=== PATIENT | female | born 1950 | race Caucasian/White ===

== ENCOUNTER 2017-04-23 18:22 | Inpatient (IN) | payer MEDICARE, OTHER ==
[~2017-04-23] VITALS: Ht 177.8 cm; Wt 56.7 kg
[2017-04-23 19:11] VITALS: BP 131/82
[2017-04-23] MEDS ORDERED: Morphine Sulfate 4mg/ml Inj IVP ONE ×2 (19:30→20:45)
[2017-04-23 20:00] VITALS: BP 120/67
[2017-04-23 20:06] LABS: BASOPHILS % (AUTO) 1.3 % (0.0-2.0); EOSINOPHILS % (AUTO) 2.3 % (0.0-3.0); LYMPHOCYTES % (AUTO) 21.7 % (20.0-45.0); MEAN CORPUSCULAR HEMOGLOBIN 34.9 PG (27.0-31.0); MEAN CORPUSCULAR HGB CONC 36.4 G/DL (32.0-36.0); MEAN CORPUSCULAR VOLUME 96 FL (80-99); MEAN PLATELET VOLUME 6.5 FL (6.5-10.1); MONOCYTES % (AUTO) 6.9 % (1.0-10.0); NEUTROPHILS % (AUTO) 67.8 % (45.0-75.0); PLATELET COUNT 152 K/UL (150-450); RED BLOOD COUNT 4.03 M/UL (4.20-5.40); RED CELL DISTRIBUTION WIDTH 12.3 % (11.6-14.8); WHITE BLOOD COUNT 7.9 K/UL (4.8-10.8)
[2017-04-23 20:20] LABS: ALBUMIN/GLOBULIN RATIO 1.4 (1.0-2.7); CALCIUM 9.8 mg/dL (8.6-10.2); GLOMERULAR FILTRATION RATE 55.5 mL/min (>60); POTASSIUM 4.2 mEQ/L (3.4-4.9); TOTAL PROTEIN 7.2 g/dL (6.6-8.7)
[2017-04-23 21:00] VITALS: BP 126/72
[2017-04-23 22:00] VITALS: BP 117/90
[2017-04-23] MEDS ORDERED: LORazepam Inj 2mg/ml 1ml IV PRN (22:30)
[2017-04-23] MEDS ORDERED: Mylanta II UD 30ml ORAL PRN (22:30)
[2017-04-23] MEDS ORDERED: Morphine Sulfate 2mg/ml Inj IVP PRN (22:30)
[2017-04-23] MEDS ORDERED: Zolpidem 5mg tab ORAL PRN (22:30)
[2017-04-23] MEDS ORDERED: Miralax 17gm pkt ORAL PRN (22:30)
[2017-04-23] MEDS ORDERED: NEURONTIN300 MG ORAL (22:59)
[2017-04-23] MEDS ORDERED: TRAZODONE HCL150 MG ORAL (22:59)
[2017-04-23] MEDS ORDERED: NORCO 5-325 TA1 EAC1 ORAL (22:59)
[2017-04-23 23:00] VITALS: BP 124/91
--- NOTE | 2017-04-23 23:46 | Emergency Room Report ---
History of Present Illness General Chief Complaint: Multiple Trauma/Fall Source: Patient Present Illness HPI 66-year-old female presents ED for evaluation. Patient is here complaining of neck pain, back pain and left leg pain. States that she had a mechanical trip and fall on Wednesday where she missed the steps and fell on her left side. Denies LOC. Patient was seen at [facility] in [facility]. Had x-rays was told a reading was normal was discharged home. Patient states since then she has had intense pain which is not improving with pain medication. Unable to ambulate so she came here. Patient has pain in her neck, back, left hip and left leg. Pain is a 10 out of 10, sharp, nonradiating. No other aggravating or relieving factors. Patient states that she had back surgery here in [address] Adan. Patient states this is related to a Worker's Comp. related injury years ago. Denies any other associated symptom Allergies: Coded Allergies: No Known Allergies (Verified Allergy, Mild, 09/14/06) Patient History Past Surgical History: other - back surgery Pertinent Family History: none Social History: Denies: alcohol use, drug use, smoking Now: No Immunizations: UTD Reviewed Nursing Documentation: PMH: Agreed, PSxH: Agreed Nursing Documentation-PMH Past Medical History: No History, Except For Review of Systems All Other Systems: negative except mentioned in HPI Physical Exam Vital Signs Date Time Temp Pulse Resp B/P Pulse Ox O2 Delivery O2 Flow Rate FiO2 04/23/17 18:50 99.1 83 21 131/82 97 Room Air Sp02 EP Interpretation: reviewed, normal General Appearance: alert, GCS 15, non-toxic, mild distress Head: normocephalic Eyes: bilateral eye PERRL, bilateral eye normal inspection ENT: hearing grossly normal, normal pharynx, no angioedema, normal voice Neck: full range of motion, supple/symm/no masses, tender lateral, tender midline Respiratory: chest non-tender, lungs clear, normal breath sounds, speaking full sentences Cardiovascular #1: regular rate, rhythm, no edema Gastrointestinal: normal bowel sounds, non tender, soft, non-distended, no guarding, no rebound Rectal: black stool Genitourinary: no CVA tenderness, vertebral tenderness Musculoskeletal: tender - L hip, L femur Neurologic: alert, oriented x3, responsive, motor strength/tone normal, sensory intact, speech normal Psychiatric: normal inspection Skin: normal inspection Lymphatic: normal inspection Medical Decision Making Diagnostic Impression: Primary Impression: Intractable back pain Additional Impressions: Unable to ambulate Opioid dependence Qualified Codes: F11.29 - Opioid dependence with unspecified opioid-induced disorder ER Course Hospital Course 66-year-old female presents ED complaining of neck, back and leg pain status post fall on Wednesday Differential diagnoses include: fracture, dislocation, contusion Clinical course Patient placed on stretcher. site monitor. After initial history and physical I ordered labs, IV fluids, pain medications, and imaging studies Labs - no leukocytosis, Hb/Hct stable. electrolytes ok. CT C-spine, CT L-spine and CT pelvis were unremarkable Patient x-rays of left wrist, left ankle and left femur which were all unremarkable, hardware in L hip in place Patient given pain medications but still continues to have pain and unable to walk Patient is a [place] patient; however patient does not want to be admitted to [place] because this is related to her Workmen's Comp. injury Discussed case with Dr. Adan; he will follow the patient once admitted Pain management doctor is Dr Kiet Macias; he is aware that patient has extensive narcotic dependence and despite receiving 120 tablets of [place] 2 weeks ago patient has finished her medication. He will see patient once admitted. Case discussed with Dr. Jeffries and he agreed to accept the patient to his service for further care and support I feel this is a highly complex case requiring extensive working including EKG/ Rhythm strip, Xray/CT/US, Blood/urine lab work, repeat exams while in ED, and administration of strong opiates/narcotics for pain control, admission to hospital or close patient follow up. Diagnosis -intractable back pain , unable to ambulate, opioid dependence Patient admitted to floor in serious condition Labs Test 04/23/17 19:35 White Blood Count 7.9 K/UL (4.8-10.8) Red Blood Count 4.03 M/UL (4.20-5.40) Hemoglobin 14.0 G/DL (12.0-16.0) Hematocrit 38.6 % (37.0-47.0) Mean Corpuscular Volume 96 FL (80-99) Mean Corpuscular Hemoglobin 34.9 PG (27.0-31.0) Mean Corpuscular Hemoglobin Concent 36.4 G/DL (32.0-36.0) Red Cell Distribution Width 12.3 % (11.6-14.8) Platelet Count 152 K/UL (150-450) Mean Platelet Volume 6.5 FL (6.5-10.1) Neutrophils (%) (Auto) 67.8 % (45.0-75.0) Lymphocytes (%) (Auto) 21.7 % (20.0-45.0) Monocytes (%) (Auto) 6.9 % (1.0-10.0) Eosinophils (%) (Auto) 2.3 % (0.0-3.0) Basophils (%) (Auto) 1.3 % (0.0-2.0) Sodium Level 140 mEQ/L (135-145) Potassium Level 4.2 mEQ/L (3.4-4.9) Chloride Level 99 mEQ/L (98-107) Carbon Dioxide Level 27 mEQ/L (20-30) Anion Gap 14 (5-15) Blood Urea Nitrogen 19 mg/dL (7-23) Creatinine 1.0 mg/dL (0.5-0.9) Estimat Glomerular Filtration Rate 55.5 mL/min (>60) Glucose Level 95 mg/dL (74-106) Calcium Level 9.8 mg/dL (8.6-10.2) Total Bilirubin 0.4 mg/dL (0.0-1.2) Aspartate Amino Transf (AST/SGOT) 17 U/L (5-40) Alanine Aminotransferase (ALT/SGPT) 7 U/L (3-33) Alkaline Phosphatase 55 U/L (35-104) Total Protein 7.2 g/dL (6.6-8.7) Albumin 4.2 g/dL (3.5-5.2) Globulin 3.0 g/dL Albumin/Globulin Ratio 1.4 (1.0-2.7) Other X-Ray Diagnostic Results Other X-Ray Diagnostic Results : X-Ray Ordered: L wrist, L ankle, L femur EP Interpretation: Yes Findings: no fractures, no dislocation, no soft tissue swelling Number of Views: 3 Other Impression Left wrist-No fracture, no dislocation, no soft tissue swelling Left femur-No fracture, no dislocation, no soft tissue swelling, hardware in place Left ankle-No fracture, no dislocation, no soft tissue swelling CT/MRI/US Diagnostic Results CT/MRI/US Diagnostic Results : Imaging Test Ordered: cT C-spine, CT L-spine, CT Pelvis Impression CT C-spine-no acute process CT L-spine-no acute process CT pelvis - no acute process Last Vital Signs Date Time Temp Pulse Resp B/P Pulse Ox O2 Delivery O2 Flow Rate FiO2 04/23/17 23:00 62 18 124/91 98 Room Air 04/23/17 20:53 99.1 Status: improved Disposition: ADMITTED INPATIENT Condition: Serious Referrals: [facility] (PCP) SALUD GANN M.D. Apr 23, 2017 23:46
[2017-04-24] VITALS (8 sets, daily range): BP systolic 116–135; BP diastolic 69–91
[2017-04-24] MEDS: Morphine Sulfate 4mg/ml Inj IVP PRN ×5 (02:17→21:45)
--- NOTE | 2017-04-24 09:08 | Diagnostic Imaging Report ---
Indication: Neck pain. Technique: Continuous helical imaging of the cervical spine was obtained transaxially from the skull base to the upper thoracic spine. 2-D coronal and sagittal reformatted images were obtained. Total Dose length Product (DLP): [address] Dose Index Volume (CTDIvol): 10.25 mGy Comparison: None Findings: Bones are osteopenic. There is no fracture or malalignment identified. Some narrowing of the intervertebral discs at C5-6 and C6-7 are noted with accompanying endplate and uncovertebral spur formation and foraminal stenosis. Mastoids are clear bilaterally. Soft tissues are unremarkable in appearance. The lung apices demonstrate nonspecific pleural thickening. Impression: No acute injury [facility] has communicated the preliminary results to the Emergency Department. Their findings are largely concordant with this report. The CT scanner at [facility] is accredited by the [employer] and the scans are performed using dose optimization techniques as appropriate to a performed exam including Automatic Exposure control.
[2017-04-24 10:00] LABS: BASOPHILS % (AUTO) 1.4 % (0.0-2.0); EOSINOPHILS % (AUTO) 3.2 % (0.0-3.0); LYMPHOCYTES % (AUTO) 28.1 % (20.0-45.0); MEAN CORPUSCULAR HEMOGLOBIN 32.3 PG (27.0-31.0); MEAN CORPUSCULAR HGB CONC 34.1 G/DL (32.0-36.0); MEAN CORPUSCULAR VOLUME 95 FL (80-99); MEAN PLATELET VOLUME 6.3 FL (6.5-10.1); MONOCYTES % (AUTO) 7.8 % (1.0-10.0); NEUTROPHILS % (AUTO) 59.5 % (45.0-75.0); PLATELET COUNT 162 K/UL (150-450); RED BLOOD COUNT 3.87 M/UL (4.20-5.40); RED CELL DISTRIBUTION WIDTH 11.8 % (11.6-14.8); WHITE BLOOD COUNT 6.1 K/UL (4.8-10.8)
[2017-04-24 10:29] LABS: ALANINE AMINOTRANSFERASE 6 U/L (3-33); ALBUMIN/GLOBULIN RATIO 1.3 (1.0-2.7); ANION GAP 14 (5-15); ASPARTATE AMINO TRANSFERASE 15 U/L (5-40); CALCIUM 9.2 mg/dL (8.6-10.2); CARBON DIOXIDE 27 mEQ/L (20-30); CHLORIDE 98 mEQ/L (98-107); CREATININE 0.9 mg/dL (0.5-0.9); GLOMERULAR FILTRATION RATE > 60 mL/min (>60); HEMOLYSIS 10; POTASSIUM 3.9 mEQ/L (3.4-4.9); SODIUM 139 mEQ/L (135-145); TOTAL PROTEIN 6.4 g/dL (6.6-8.7)
[2017-04-24] MEDS: Heparin 5000 units/ml inj SUBQ SCH ×2 (11:00→21:00)
--- NOTE | 2017-04-24 11:06 | Diagnostic Imaging Report ---
Indication: Pain Findings: 3 views of the left wrist were obtained. No acute fractures, malalignment, erosions or periostitis are identified. Bone mineralization is within normal limits. Soft tissues are unremarkable. Impression: Negative examination of the left wrist.
--- NOTE | 2017-04-24 11:07 | Diagnostic Imaging Report ---
Indication: Pain Findings: 2 views of the left femur were obtained. Left total hip replacement demonstrated. No abnormal interface lucencies or fracture identified. The bones are osteopenic. Hardware alignment/position appear unremarkable. Impression: No acute abnormalities
--- NOTE | 2017-04-24 15:03 | History and Physical ---
History of Present Illness General Date patient seen: Apr 24, 2017 Time patient seen: 12:30 Reason for Hospitalization: Multiple Trauma/Fall Present Illness HPI 66-year-old female presented to ED for evaluation. Patient was complaining of neck pain, back pain and left leg pain after a mechanical trip and fall on Wednesday where she missed the steps and fell on her left side. Denied LOC, dizziness, ehad injury . Patient was seen at [facility] in [facility]. She had x-rays at [facility] , was told readings were normal and subsequently she was discharged home. Patient stated that since that time she has had intense pain which was not improved with pain medication. Unable to ambulate and came to [facility] ED for evaluation ' Patient had pain in her neck, back, left hip and left leg. Pain was 10 out of 10, sharp, nonradiating. Patient reported to ve back surgery here in [address] Adan. Patient stated was related to a Worker's Comp. related injury years ago. Workup in ED was unremarkable Labs - no leukocytosis, Hb/Hct stable. electrolytes stable . CT C-spine, CT L-spine and CT pelvis were unremarkable Patient x-rays of left wrist, left ankle and left femur which were all unremarkable, hardware in L hip in place Patient was given pain medications but she still continued to have pain and was unable to walk Patient was admitted for further management This morning patient was unable to work with physical therapist per physical therapist patient may have fracture patient herself reported that she can not move her left leg Allergies: Coded Allergies: No Known Allergies (Verified Allergy, Mild, 09/14/06) Medication History Scheduled Gabapentin (Neurontin), 300 MG ORAL THREE TIMES A DAY, (Reported) Trazodone* (Trazodone*), 150 MG ORAL BEDTIME, (Reported) Scheduled PRN Hydrocodone Bit/Acetaminophen 5-325* ([place] 5-325 Tablet*), 1 TAB ORAL Q4H PRN for For Pain, (Reported) Patient History Healthcare decision maker Resuscitation status Full Code Advanced Directive on File Review of Systems Constitutional: Reports: weakness Eye: Reports: no symptoms ENT: Reports: nasal discharge Cardiovascular: Reports: no symptoms Gastrointestinal: Reports: no symptoms Genitourinary: Reports: no symptoms Musculoskeletal: Reports: see HPI Skin: Reports: no symptoms Psychiatric: Reports: no symptoms Neurological: Reports: no symptoms Endocrine: Reports: no symptoms Hematologic/Lymphatic: Reports: no symptoms Physical Exam General Appearance: alert, mild distress, thin - female in mild distress Lines, tubes and drains: peripheral HEENT: normocephalic, atraumatic, anicteric, mucous membranes moist, PERRL Neck: non-tender, supple Respiratory/Chest: lungs clear, no respiratory distress, no accessory muscle use Abdomen: normal bowel sounds, non tender, soft Extremities: no calf tenderness, normal capillary refill, other - LLE with edema and external rotation Neurologic: abnormal gait, alert, oriented x 3, responsive, normal mood/affect Musculoskeletal: normal muscle bulk Last 24 Hour Vital Signs Date Time Temp Pulse Resp B/P Pulse Ox O2 Delivery O2 Flow Rate FiO2 04/24/17 12:17 98.3 82 20 128/81 94 Room Air 04/24/17 08:05 98.1 72 21 122/77 92 Room Air 04/24/17 06:49 98.2 04/24/17 04:00 98.2 71 18 116/70 90 Room Air 04/24/17 01:51 97.7 70 18 124/74 97 Room Air 04/24/17 01:00 62 18 124/91 98 Room Air 04/24/17 00:00 98.7 65 16 128/89 95 Room Air 04/23/17 23:53 99.1 62 18 124/91 98 Room Air 04/23/17 23:00 62 18 124/91 98 Room Air 04/23/17 22:00 66 11 117/90 96 Room Air 04/23/17 21:00 73 16 126/72 95 Room Air 04/23/17 20:53 99.1 04/23/17 20:04 99.1 04/23/17 20:00 80 14 120/67 97 Room Air 04/23/17 19:11 99.1 83 21 131/82 97 Room Air 04/23/17 18:50 99.1 83 21 131/82 97 Room Air Intake and Output 04/23/17 04/24/17 19:00 07:00 Intake Total 125 ml Output Total 350 ml Balance -225 ml Intake Oral 125 ml Output Urine Total 350 ml # Voids 1 Laboratory Tests Test 04/23/17 19:35 04/24/17 08:50 White Blood Count 7.9 K/UL (4.8-10.8) 6.1 K/UL (4.8-10.8) Red Blood Count 4.03 M/UL (4.20-5.40) L 3.87 M/UL (4.20-5.40) L Hemoglobin 14.0 G/DL (12.0-16.0) 12.5 G/DL (12.0-16.0) Hematocrit 38.6 % (37.0-47.0) 36.6 % (37.0-47.0) L Mean Corpuscular Volume 96 FL (80-99) 95 FL (80-99) Mean Corpuscular Hemoglobin 34.9 PG (27.0-31.0) H 32.3 PG (27.0-31.0) H Mean Corpuscular Hemoglobin Concent 36.4 G/DL (32.0-36.0) H 34.1 G/DL (32.0-36.0) Red Cell Distribution Width 12.3 % (11.6-14.8) 11.8 % (11.6-14.8) Platelet Count 152 K/UL (150-450) 162 K/UL (150-450) Mean Platelet Volume 6.5 FL (6.5-10.1) 6.3 FL (6.5-10.1) L Neutrophils (%) (Auto) 67.8 % (45.0-75.0) 59.5 % (45.0-75.0) Lymphocytes (%) (Auto) 21.7 % (20.0-45.0) 28.1 % (20.0-45.0) Monocytes (%) (Auto) 6.9 % (1.0-10.0) 7.8 % (1.0-10.0) Eosinophils (%) (Auto) 2.3 % (0.0-3.0) 3.2 % (0.0-3.0) H Basophils (%) (Auto) 1.3 % (0.0-2.0) 1.4 % (0.0-2.0) Sodium Level 140 mEQ/L (135-145) 139 mEQ/L (135-145) Potassium Level 4.2 mEQ/L (3.4-4.9) 3.9 mEQ/L (3.4-4.9) Chloride Level 99 mEQ/L (98-107) 98 mEQ/L (98-107) Carbon Dioxide Level 27 mEQ/L (20-30) 27 mEQ/L (20-30) Anion Gap 14 (5-15) 14 (5-15) Blood Urea Nitrogen 19 mg/dL (7-23) 17 mg/dL (7-23) Creatinine 1.0 mg/dL (0.5-0.9) H 0.9 mg/dL (0.5-0.9) Estimat Glomerular Filtration Rate 55.5 mL/min (>60) > 60 mL/min (>60) Glucose Level 95 mg/dL (74-106) 90 mg/dL (74-106) Calcium Level 9.8 mg/dL (8.6-10.2) 9.2 mg/dL (8.6-10.2) Total Bilirubin 0.4 mg/dL (0.0-1.2) 0.4 mg/dL (0.0-1.2) Aspartate Amino Transf (AST/SGOT) 17 U/L (5-40) 15 U/L (5-40) Alanine Aminotransferase (ALT/SGPT) 7 U/L (3-33) 6 U/L (3-33) Alkaline Phosphatase 55 U/L (35-104) 49 U/L (35-104) Total Protein 7.2 g/dL (6.6-8.7) 6.4 g/dL (6.6-8.7) L Albumin 4.2 g/dL (3.5-5.2) 3.7 g/dL (3.5-5.2) Globulin 3.0 g/dL 2.7 g/dL Albumin/Globulin Ratio 1.4 (1.0-2.7) 1.3 (1.0-2.7) Thyroid Stimulating Hormone (TSH) 3.290 uIU/mL (0.300-4.500) Height (Feet): 5 Height (Inches): 10.00 Weight (Pounds): 125 Medications Current Medications Medications (Trade) Dose Ordered Sig/Nasreen Route PRN Reason Start Time Stop Time Status Last Admin Dose Admin Acetaminophen (Tylenol) 650 mg Q4H PRN ORAL fever 04/23/17 22:30 05/23/17 22:29 Al Hydroxide/Mg Hydroxide (Mylanta II) 30 ml Q6H PRN ORAL dyspepsia 04/23/17 22:30 05/23/17 22:29 Dextrose (Dextrose 50%) STAT PRN IV Hypoglycemia 04/23/17 22:30 05/23/17 22:29 Heparin Sodium (Porcine) (Heparin 5000 units/ml) 5,000 units EVERY 12 HOURS SUBQ 04/24/17 09:00 05/24/17 08:59 04/24/17 11:00 Lorazepam (Ativan 2mg/ml 1ml) 0.5 mg Q4H PRN IV For Anxiety 04/23/17 22:30 04/30/17 22:29 Morphine Sulfate (Morphine Sulfate) 2 mg Q4H PRN IVP For Pain 4-6 04/23/17 22:30 04/30/17 22:29 Morphine Sulfate (Morphine Sulfate) 4 mg Q4H PRN IVP For Pain 7-10 04/23/17 22:30 04/30/17 22:29 04/24/17 11:03 Ondansetron HCl (Zofran) 4 mg Q6H PRN IVP Nausea & Vomiting 04/23/17 22:30 05/23/17 22:29 Polyethylene Glycol (Miralax) 17 gm HSPRN PRN ORAL Constipation 04/23/17 22:30 05/23/17 22:29 Zolpidem Tartrate (Ambien) 5 mg HSPRN PRN ORAL Insomnia 04/23/17 22:30 05/23/17 22:29 Assessment/Plan Assessment/Plan ASSESSMENT s/p mechanical fall intractable pain LLE r/o fracture hx of L hip surgery hx of lumbar surgery intractable back pain inability to ambulate chronic pain syndrome opioid dependency PLAN OF CARE MS floor pain management pain specialist consult CT L hip and X ray R knee today stat surgery eval PT/OT DVT prophylaxis case discussed and evaluated by supervising physician Mindi Keen NP ([place]) Apr 24, 2017 15:03
--- NOTE | 2017-04-24 17:11 | Neurology Progress Note ---
Objective Physical Exam Last Vital Signs Date Time Temp Pulse Resp B/P Pulse Ox O2 Delivery O2 Flow Rate FiO2 04/24/17 15:43 100.0 66 20 135/69 95 Room Air Laboratory Tests Test 04/23/17 19:35 04/24/17 08:50 White Blood Count 7.9 K/UL (4.8-10.8) 6.1 K/UL (4.8-10.8) Red Blood Count 4.03 M/UL (4.20-5.40) L 3.87 M/UL (4.20-5.40) L Hemoglobin 14.0 G/DL (12.0-16.0) 12.5 G/DL (12.0-16.0) Hematocrit 38.6 % (37.0-47.0) 36.6 % (37.0-47.0) L Mean Corpuscular Volume 96 FL (80-99) 95 FL (80-99) Mean Corpuscular Hemoglobin 34.9 PG (27.0-31.0) H 32.3 PG (27.0-31.0) H Mean Corpuscular Hemoglobin Concent 36.4 G/DL (32.0-36.0) H 34.1 G/DL (32.0-36.0) Red Cell Distribution Width 12.3 % (11.6-14.8) 11.8 % (11.6-14.8) Platelet Count 152 K/UL (150-450) 162 K/UL (150-450) Mean Platelet Volume 6.5 FL (6.5-10.1) 6.3 FL (6.5-10.1) L Neutrophils (%) (Auto) 67.8 % (45.0-75.0) 59.5 % (45.0-75.0) Lymphocytes (%) (Auto) 21.7 % (20.0-45.0) 28.1 % (20.0-45.0) Monocytes (%) (Auto) 6.9 % (1.0-10.0) 7.8 % (1.0-10.0) Eosinophils (%) (Auto) 2.3 % (0.0-3.0) 3.2 % (0.0-3.0) H Basophils (%) (Auto) 1.3 % (0.0-2.0) 1.4 % (0.0-2.0) Sodium Level 140 mEQ/L (135-145) 139 mEQ/L (135-145) Potassium Level 4.2 mEQ/L (3.4-4.9) 3.9 mEQ/L (3.4-4.9) Chloride Level 99 mEQ/L (98-107) 98 mEQ/L (98-107) Carbon Dioxide Level 27 mEQ/L (20-30) 27 mEQ/L (20-30) Anion Gap 14 (5-15) 14 (5-15) Blood Urea Nitrogen 19 mg/dL (7-23) 17 mg/dL (7-23) Creatinine 1.0 mg/dL (0.5-0.9) H 0.9 mg/dL (0.5-0.9) Estimat Glomerular Filtration Rate 55.5 mL/min (>60) > 60 mL/min (>60) Glucose Level 95 mg/dL (74-106) 90 mg/dL (74-106) Calcium Level 9.8 mg/dL (8.6-10.2) 9.2 mg/dL (8.6-10.2) Total Bilirubin 0.4 mg/dL (0.0-1.2) 0.4 mg/dL (0.0-1.2) Aspartate Amino Transf (AST/SGOT) 17 U/L (5-40) 15 U/L (5-40) Alanine Aminotransferase (ALT/SGPT) 7 U/L (3-33) 6 U/L (3-33) Alkaline Phosphatase 55 U/L (35-104) 49 U/L (35-104) Total Protein 7.2 g/dL (6.6-8.7) 6.4 g/dL (6.6-8.7) L Albumin 4.2 g/dL (3.5-5.2) 3.7 g/dL (3.5-5.2) Globulin 3.0 g/dL 2.7 g/dL Albumin/Globulin Ratio 1.4 (1.0-2.7) 1.3 (1.0-2.7) Thyroid Stimulating Hormone (TSH) 3.290 uIU/mL (0.300-4.500) Impression/Recommendations Recommendations #[id number] ZAIDA STEVEN Apr 24, 2017 17:11
[2017-04-25] VITALS: BP 130/77
--- NOTE | 2017-04-25 03:30 | Consultation ---
DATE OF CONSULTATION: 04/24/2017 NEUROLOGICAL CONSULTATION REQUESTING PHYSICIAN: Sarkis Jeffries M.D. HISTORY OF PRESENT ILLNESS: The patient was admitted to this hospital after having a mechanical trip and fall on Wednesday. He landed forward, but mainly to the left side. Pain was excruciating, but no loss of consciousness. She was able to get up, lie down to the bed, but due to severity of pain, paramedics were called to the scene. [facility]. Apparently, x-rays revealed no fracture or dislocation, so she was discharged home, but pain become more intense. She was unable to take care of herself at home being nonambulatory and she was admitted to this facility. The patient's vital signs on admission were stable with temperature 99.1 degrees. She had a CT scan of the cervical spine, lumbar spine and CT scan of the pelvic bones, all reported as unremarkable with no fracture. There was lumbar spinal fusion hardware with L5 hemilaminectomy noted and left hip prosthesis. X-rays were obtained including left foot, left ankle and left femur. There was no fracture or dislocation. According to her pain management physician, the patient apparently has extensive narcotic dependency. She received 120 tablets of [place] only two weeks ago and finished until prior to admission. Lab work on admission included a unremarkable CBC studies and chemistry panel with normal TSH. The patient is known to this facility since 2005, as she was diagnosed with lumbar spine herniation, resulting in three to four lumbar spine surgeries. She would develop postlaminectomy syndrome, chronic pain, opiate dependent. She is maintained off balance, occasional stabbing pains in her lower extremities. Following current admission, the patient also noted to have bruises from recent fall with pain in the right side of the neck, left arm, left wrist and left rib cage. PAST MEDICAL HISTORY: Limited to the symptoms due to lumbar spine surgeries. Denies hypertension or diabetes. MEDICATIONS: Treatment at home included Neurontin 300 mg t.i.d., [place] 5 mg q.4 h. p.r.n. and trazodone 150 mg at bedtime. REVIEW OF SYSTEMS: Excruciating pain in the left hip and thigh region provoked with any mild movement or slight touch. Inability to lift left lower extremity. Pain in her low back region. Pain in the injury site including both ribcage, left arm, left wrist, and right side of the neck. She has no chest pain. No palpitations. No respiratory problems. No abdominal pain or discomfort. No urine or bowel incontinence. PHYSICAL EXAMINATION: GENERAL: The patient is well developed, somewhat slim lady who is in mild distress, complaining of severe intractable pain. VITAL SIGNS: Now stable, blood pressure 125/80 and respiration 18. HEENT: Head, normocephalic. No evidence of trauma. There is palpable tenderness in the right side of the neck. MUSCULOSKELETAL: There is a bruise with bluish discoloration to left wrist, left elbow. Palpable tenderness in both rib cages. Palpation of right lower extremity unremarkable, able to move right lower extremity. The patient would not allow us to examine her left lower extremity due to excruciating pain on slight touch. The patient was able to do slight massage of her left thigh. There is no discoloration and no bruises noted. No swelling noted. MENTAL STATUS: The patient is emotion labile, tense, anxious, and crying and stating that she is ion panic due to the fact she was unable to lift her left leg. She has remained coherent and follow command. CRANIAL NERVE II: Pupils, both responding to light and accommodation. Extraocular movement intact. No nystagmus. CRANIAL NERVE V: Normal corneal responses. CRANIAL NERVE VII: No facial asymmetry. CRANIAL NERVE VIII: Normal hearing. CRANIAL NERVES IX THROUGH XII: Tongue is in midline. Symmetric palate elevation. MOTOR EXAMINATION: Normal muscle tone and strength in both upper extremities and right lower extremity. Acute tenderness and mild touch to her left thigh region. Avoiding movement with left lower extremity, although able to do left foot dorsiflexion with 3/5 weakness. Deep tendon reflexes 1+ bilaterally symmetric except not tested left knee and ankle jerks. Plantar responses flexor. SENSORY EXAMINATION: Dysesthesia and left lower extremity non-dermatome distribution. Gait not tested. IMPRESSION: 1. Status post mechanical fall with multiple bruises and severe left thigh area sprain and strain with intractable pain. Rule out compartmental syndrome and rule out occult fracture. 2. Status post lumbar spine surgeries with failed back, rule out a posttraumatic left barby radiculopathy. 3. Chronic pain, opiate dependent. 4. Anxiety, depression. RECOMMENDATION: Spine surgery requested and MRI lumbar spine is pending. May need MRI of soft tissues of both thighs. Meanwhile, the patient continue with the pain management. Add Cymbalta 30 mg b.i.d. and increase Neurontin 300 mg q.i.d. Hot pack to the left hip. Thank you for allowing me to see this interesting patient in neurological consultation. Chapito Booker M.D. DR: IRMA JOB#: [id number] CC:
[2017-04-25 04:00] VITALS: BP 122/88
[2017-04-25 08:00] VITALS: BP 147/89
[2017-04-25] MEDS: Morphine Sulfate 4mg/ml Inj IVP PRN (08:18)
--- NOTE | 2017-04-25 08:28 | Diagnostic Imaging Report ---
Indication: Back pain Technique: Continuous helical transaxial imaging of the lumbar spine was obtained from the lung bases to the pubic symphysis. No IV contrast was administered. Coronal 2-D reformats were also obtained. Study obtained in a Siemens sensation [address] Total Dose length Product (DLP): [address] Dose Index Volume (CTDIvol): 12 mGy Comparison: None Findings: Patient is had lower lumbar surgery consisting of anterior interbody fusion with instrumentation at L4-5, laminectomies at both of these levels, anterior instrumented fusion of L5-S1, metallic disc prosthesis at L3-4. There is no acute fracture identified. The bones are osteopenic. Hardware alignment and position appears appropriate. Arterial vascular calcifications are present. Sclerosis of the facets noted at multiple levels particularly the lower part of the lumbar upper sacral spine. Certainly the bladder appears mildly distended. Impression: No acute injury identified. Status post lumbar spine surgery as discussed above. Osteopenia Arterial vascular disease Dilated urinary bladder. Please correlate clinically. [facility] has communicated the preliminary results to the Emergency Department. Their findings are largely concordant with this report. The CT scanner at [facility] is accredited by the [employer] and the scans are performed using dose optimization techniques as appropriate to a performed exam including Automatic Exposure control.
--- NOTE | 2017-04-25 08:28 | Diagnostic Imaging Report ---
Indication: Abdominal pain Technique: Continuous helical transaxial imaging of the pelvis was obtained from the iliac crest to the pubic symphysis. Coronal 2-D reformats were also obtained. Study obtained in a Siemens sensation [address] Total Dose length Product (DLP): [address] Dose Index Volume (CTDIvol): 11 mGy Comparison: None Findings: No acute fracture is identified. There is a left total hip prosthetic noted as well as lumbar spine I'd were (further described on the lumbar spine CT report). Urinary bladder is dilated. There is moderate fecal retention within the visualized part of the colon. Sacroiliac joints appear symmetric. Bones are osteopenic. Impression: No acute injury identified. Left total hip arthroplasty partially visualized on this study. Dilated urinary bladder. Please correlate clinically. Osteoporosis Please refer to the separate dictated CT lumbar spine report The CT scanner at [facility] is accredited by the [employer] and the scans are performed using dose optimization techniques as appropriate to a performed exam including Automatic Exposure control.
--- NOTE | 2017-04-25 08:29 | Diagnostic Imaging Report ---
Indication: Pain Comparison: None Findings: 3 views of the left ankle obtained. No acute fracture, malalignment, periostitis, or osteochondral defects are identified. Soft tissues are unremarkable. Bones appear osteopenic. Impression: No acute findings
[2017-04-25] MEDS: Heparin 5000 units/ml inj SUBQ SCH ×3 (09:00→20:26)
--- NOTE | 2017-04-25 10:30 | Consultation ---
History of Present Illness General Date patient seen: Apr 25, 2017 Chief Complaint: Multiple Trauma/Fall Present Illness Allergies: Coded Allergies: No Known Allergies (Verified Allergy, Mild, 09/14/06) Medication History Scheduled Gabapentin (Neurontin), 300 MG ORAL THREE TIMES A DAY, (Reported) Trazodone* (Trazodone*), 150 MG ORAL BEDTIME, (Reported) Scheduled PRN Hydrocodone Bit/Acetaminophen 5-325* (Jackson 5-325 Tablet*), 1 TAB ORAL Q4H PRN for For Pain, (Reported) Patient History Healthcare decision maker Resuscitation status Full Code Advanced Directive on File Physical Exam Last 24 Hour Vital Signs Date Time Temp Pulse Resp B/P Pulse Ox O2 Delivery O2 Flow Rate FiO2 04/25/17 08:00 97.4 67 20 147/89 93 Room Air 04/25/17 04:00 97.9 68 16 122/88 97 Room Air 04/25/17 00:00 98.4 69 20 130/77 92 Room Air 04/24/17 20:16 99.0 73 18 125/73 95 Room Air 04/24/17 15:43 100.0 66 20 135/69 95 Room Air 04/24/17 12:17 98.3 82 20 128/81 94 Room Air Intake and Output 04/24/17 04/25/17 19:00 07:00 Intake Total 1050 ml Balance 1050 ml Intake Oral 1050 ml # Voids 3 3 Height (Feet): 5 Height (Inches): 10.00 Weight (Pounds): 125 Medications Current Medications Medications (Trade) Dose Ordered Sig/Nasreen Route PRN Reason Start Time Stop Time Status Last Admin Dose Admin Acetaminophen (Tylenol) 650 mg Q4H PRN ORAL fever 04/23/17 22:30 05/23/17 22:29 Acetaminophen/ Hydrocodone Bitart (Jackson 10/325) 1 ea Q6H PRN ORAL For moderate Pain 04/25/17 10:30 05/02/17 10:29 UNV Al Hydroxide/Mg Hydroxide (Mylanta II) 30 ml Q6H PRN ORAL dyspepsia 04/23/17 22:30 05/23/17 22:29 Baclofen (Lioresal) 10 mg THREE TIMES A DAY ORAL 04/25/17 10:30 05/25/17 10:29 UNV Dextrose (Dextrose 50%) STAT PRN IV Hypoglycemia 04/23/17 22:30 05/23/17 22:29 Duloxetine HCl (Cymbalta) 40 mg DAILY ORAL 04/24/17 18:00 05/24/17 17:59 04/24/17 19:02 Gabapentin (Neurontin) 400 mg THREE TIMES A DAY ORAL 04/24/17 18:00 05/24/17 17:59 04/24/17 19:02 Heparin Sodium (Porcine) (Heparin 5000 units/ml) 5,000 units EVERY 12 HOURS SUBQ 04/24/17 09:00 05/24/17 08:59 04/24/17 11:00 Hydromorphone HCl (Dilaudid) 1 mg Q4H PRN IVP For severe Pain 04/25/17 10:30 05/02/17 10:29 UNV Lorazepam (Ativan 2mg/ml 1ml) 0.5 mg Q4H PRN IV For Anxiety 04/23/17 22:30 04/30/17 22:29 Ondansetron HCl (Zofran) 4 mg Q6H PRN IVP Nausea & Vomiting 04/23/17 22:30 05/23/17 22:29 Polyethylene Glycol (Miralax) 17 gm HSPRN PRN ORAL Constipation 04/23/17 22:30 05/23/17 22:29 Zolpidem Tartrate (Ambien) 5 mg HSPRN PRN ORAL Insomnia 04/23/17 22:30 05/23/17 22:29 Assessment/Plan Assessment/Plan (1) Failed Back Surgery Syndrome (2) Lumbar Degenerative disc disease (3) Lumbar spondylosis (4) Lumbar Radiculopathy (5) Lumbar sprain seen dictated AFSHAN LARES Apr 25, 2017 10:30
[2017-04-25 12:00] VITALS: BP 138/79
[2017-04-25] MEDS ORDERED: Norco 10mg/325mg tab ORAL PRN (12:00)
--- NOTE | 2017-04-25 13:15 | Pulmonology Progress Note ---
Assessment/Plan Assessment/Plan ASSESSMENT s/p mechanical fall intractable pain LLE r/o fracture hx of L hip surgery hx of lumbar surgery failed Back Surgery Syndrome lumbar Degenerative disc disease lumbar spondylosis lumbar Radiculopathy lumbar sprain inability to ambulate chronic pain syndrome opioid dependency depression anxiety PLAN OF CARE MS floor pain management pain specialist consult noted and appreciated diagnostic imaging all negative for fracture per pain specialist pain in LLE may related to back pain MRI L spine in am neuro follows need to r/o compartment syndrome vs occult fracture spine surgery eval PT/OT DVT prophylaxis case discussed and evaluated by supervising physician Subjective Allergies: Coded Allergies: No Known Allergies (Verified Allergy, Mild, 09/14/06) Subjective patient still unable to move/raise LLE, pins and needles sensation LLE Objective Last 24 Hour Vital Signs Date Time Temp Pulse Resp B/P Pulse Ox O2 Delivery O2 Flow Rate FiO2 04/25/17 12:00 98.2 72 18 138/79 97 Room Air 04/25/17 08:00 97.4 67 20 147/89 93 Room Air 04/25/17 04:00 97.9 68 16 122/88 97 Room Air 04/25/17 00:00 98.4 69 20 130/77 92 Room Air 04/24/17 20:16 99.0 73 18 125/73 95 Room Air 04/24/17 15:43 100.0 66 20 135/69 95 Room Air Intake and Output 04/24/17 04/25/17 19:00 07:00 Intake Total 1050 ml Balance 1050 ml Intake Oral 1050 ml # Voids 3 3 Objective General Appearance: alert, mild distress, thin - female in mild distress Lines, tubes and drains: peripheral HEENT: normocephalic, atraumatic, anicteric, mucous membranes moist, PERRL Neck: non-tender, supple Respiratory/Chest: lungs clear, no respiratory distress, no accessory muscle use Abdomen: normal bowel sounds, non tender, soft Extremities: no calf tenderness, normal capillary refill, LLE with edema and external rotation Neurologic: abnormal gait, alert, oriented x 3, responsive, normal mood/affect Musculoskeletal: normal muscle bulk; acute tenderness to mild touch in left thigh region. Avoiding movement with left lower extremity, although able to do left foot dorsiflexion with 3/5 strength Current Medications Medications (Trade) Dose Ordered Sig/Nasreen Route PRN Reason Start Time Stop Time Status Last Admin Dose Admin Acetaminophen (Tylenol) 650 mg Q4H PRN ORAL fever 04/23/17 22:30 05/23/17 22:29 Acetaminophen/ Hydrocodone Bitart ([place] 10/325) 1 ea Q6H PRN ORAL Moderate Pain (Pain Scale 4-6) 04/25/17 12:00 05/02/17 11:59 Al Hydroxide/Mg Hydroxide (Mylanta II) 30 ml Q6H PRN ORAL dyspepsia 04/23/17 22:30 05/23/17 22:29 Baclofen (Lioresal) 10 mg THREE TIMES A DAY ORAL 04/25/17 13:00 05/25/17 12:59 Dextrose (Dextrose 50%) STAT PRN IV Hypoglycemia 04/23/17 22:30 05/23/17 22:29 Duloxetine HCl (Cymbalta) 40 mg DAILY ORAL 04/24/17 18:00 05/24/17 17:59 04/25/17 10:42 Gabapentin (Neurontin) 400 mg THREE TIMES A DAY ORAL 04/24/17 18:00 05/24/17 17:59 04/25/17 10:41 Heparin Sodium (Porcine) (Heparin 5000 units/ml) 5,000 units EVERY 12 HOURS SUBQ 04/24/17 09:00 05/24/17 08:59 04/25/17 10:59 Hydromorphone HCl (Dilaudid) 1 mg Q4H PRN IVP Severe Pain (Pain Scale 7-10) 04/25/17 12:00 05/02/17 11:59 Lorazepam (Ativan 2mg/ml 1ml) 0.5 mg Q4H PRN IV For Anxiety 04/23/17 22:30 04/30/17 22:29 Ondansetron HCl (Zofran) 4 mg Q6H PRN IVP Nausea & Vomiting 04/23/17 22:30 05/23/17 22:29 Polyethylene Glycol (Miralax) 17 gm HSPRN PRN ORAL Constipation 04/23/17 22:30 05/23/17 22:29 Zolpidem Tartrate (Ambien) 5 mg HSPRN PRN ORAL Insomnia 04/23/17 22:30 05/23/17 22:29 Mindi Keen NP (Vanchtein) Apr 25, 2017 13:15
[2017-04-25] MEDS: HYDROmorphone 1mg/ml Carpuject IVP PRN ×2 (13:24→19:01)
[2017-04-25 16:00] VITALS: BP 136/81
[2017-04-25 20:00] VITALS: BP 118/72
--- NOTE | 2017-04-25 21:15 | Consultation ---
DATE OF CONSULTATION: 04/25/2017 CONSULTING PHYSICIAN: Halle Pop M.D. REFERRING PHYSICIAN: Sarkis Jeffries M.D. PHYSICIAN JEEPER OPERATOR: Jose Johnson CHIEF COMPLAINT: Low back and left lower extremity pain. HISTORY OF PRESENT ILLNESS: The patient is a 66-year-old female who is being seen on the Med/Surg floor of [facility] for comprehensive pain management in consultation. The patient is a known patient from Dr. Pop's office due to workman's comp injury. She is reporting that she has been having low back pain for the past 15 years, which is chronic and constant. Describing it as sharp stabbing pain, which radiated down bilateral lower extremities. She was seeing us and now has transferred over back to Dr. Macias and now admitted into the hospital under Dr. Jeffries due to fall down a flight of stairs with increasing back pain and inability to move her left lower extremity. CT scan of the lumbar spine was done upon admission showing fusion in the lumbar spine, osteopenia, arterial vascular disease, dilated urinary bladder. At this time, the patient is on morphine 2 to 4 mg IV every 4 hours as needed for severe pain with no pain relief. We will start her on Neurontin as per the neurologist. We were consulted so that the patient would have adequate pain control while here in the hospital for fast recovery. PAST MEDICAL HISTORY: Anxiety and depression. PAST SURGICAL HISTORY: Hip surgery, back surgery, and shoulder surgery. SOCIAL HISTORY: Denies smoking tobacco, drinking alcohol, or IV drug abuse. ALLERGIES: No known drug allergies. MEDICATIONS: Buhler. REVIEW OF SYSTEMS: Denies rash, fever, chills, sweating, dizziness, drowsiness, blurred vision, sore throat, or change in hearing or weight. No bowel or bladder incontinence. No dysuria. She is complaining of low back pain and left lower extremity pain. PHYSICAL EXAMINATION: GENERAL: Alert, awake, oriented x3. VITAL SIGNS: Blood pressure 147/89, heart rate is 67, oxygen saturation 98%, respiratory rate is 17. Height 5'10", and weight 190 pounds. HEENT: PERRLA. NECK: Range of motion is decreased due the patient's clinical condition with tenderness of paracervical muscles. No adenopathy. LUNGS: Clear. HEART: Regular. ABDOMEN: Benign. BACK: Range of motion is reduced due to patient's pain and condition with no tenderness to paraspinal muscles and trapezial muscles. A well-healed surgical scar noted in the midline on the lumbar spine. EXTREMITIES: Upper extremity range of motion is full in all directions. Motor is intact. No cyanosis. No clubbing. No edema. Sensory is intact. Reflexes are not obtainable. No adenopathy. Right lower extremity range of motion is otherwise full in all directions. Motor is intact. No cyanosis. No clubbing. No edema. Sensory is intact. Reflexes are not obtainable. No adenopathy. Left lower extremity range of motion is reduced due the patient's current condition. No cyanosis. No clubbing. Sensory is reduced. Reflexes are not obtainable. No adenopathy ASSESSMENT AND PLAN: This is a 66-year-old female with failed back surgery syndrome, lumbar degenerative disease, lumbar spondylosis, lumbar radiculopathy, and lumbar sprain. The patient will be discontinued off the morphine and started on Dilaudid 1 mg IV every 4 hours as needed for severe pain and Buhler 10/325 mg 1 tablet every 6 hours as needed for moderate pain. MRI of the lumbar spine with and without contrast will be ordered to rule out any pathology in the lumbar spine. The patient was discussed with Dr. Pop and Dr. Pop concurred. We will follow up the patient. Thank you very much for the courtesy of this consultation Halle Pop M.D. LEONORA Johnson DR: BESS JOB#: [id number] CC: LUPE
[2017-04-26] VITALS (7 sets, daily range): BP systolic 106–140; BP diastolic 52–74
[2017-04-26] MEDS: HYDROmorphone 1mg/ml Carpuject IVP PRN ×5 (00:24→21:20)
[2017-04-26] MEDS: Heparin 5000 units/ml inj SUBQ SCH ×2 (08:29→21:19)
--- NOTE | 2017-04-26 08:52 | Diagnostic Imaging Report ---
Indication: Pain 3 views of the left knee were obtained. Findings: No acute fracture, malalignment, or joint effusion are identified. Joint space is relatively well-maintained. Bone mineralization is within normal limits for age. Impression: Negative exam
--- NOTE | 2017-04-26 15:34 | Pulmonology Progress Note ---
Assessment/Plan Problems: (1) Pain (2) Intractable back pain (3) Unable to ambulate Assessment/Plan MRI of spine pending neuro / pain f/u symptomatic treatment pt/ot Subjective ROS Limited/Unobtainable: No Constitutional: Reports: no symptoms HEENT: Repors: no symptoms Respiratory: Reports: no symptoms Allergies: Coded Allergies: No Known Allergies (Verified Allergy, Mild, 09/14/06) Objective Last 24 Hour Vital Signs Date Time Temp Pulse Resp B/P Pulse Ox O2 Delivery O2 Flow Rate FiO2 04/26/17 12:00 98.2 62 18 113/70 94 Room Air 04/26/17 08:00 98.2 72 18 121/74 95 Room Air 04/26/17 04:00 98.0 80 18 118/74 96 Room Air 04/26/17 00:54 98.2 04/26/17 00:24 97.9 62 15 140/52 96 Room Air 04/25/17 20:00 98.2 70 20 118/72 91 Room Air 04/25/17 16:00 98.4 67 16 136/81 93 Room Air Intake and Output 04/25/17 04/26/17 19:00 07:00 Intake Total 350 ml 640 ml Balance 350 ml 640 ml Intake Oral 350 ml 640 ml # Voids 4 # Bowel Movements 1 HEENT: atraumatic Respiratory/Chest: chest wall non-tender, lungs clear Cardiovascular: normal peripheral pulses Abdomen: normal bowel sounds, soft, non tender Genitourinary: normal external genitalia Extremities: no cyanosis 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 Current Medications Medications (Trade) Dose Ordered Sig/Nasreen Route PRN Reason Start Time Stop Time Status Last Admin Dose Admin Acetaminophen (Tylenol) 650 mg Q4H PRN ORAL fever 04/23/17 22:30 05/23/17 22:29 Acetaminophen/ Hydrocodone Bitart ([place] 10/325) 1 ea Q6H PRN ORAL Moderate Pain (Pain Scale 4-6) 04/25/17 12:00 05/02/17 11:59 Al Hydroxide/Mg Hydroxide (Mylanta II) 30 ml Q6H PRN ORAL dyspepsia 04/23/17 22:30 05/23/17 22:29 Baclofen (Lioresal) 10 mg THREE TIMES A DAY ORAL 04/25/17 13:00 05/25/17 12:59 04/26/17 13:28 Dextrose (Dextrose 50%) STAT PRN IV Hypoglycemia 04/23/17 22:30 05/23/17 22:29 Duloxetine HCl (Cymbalta) 40 mg DAILY ORAL 04/24/17 18:00 05/24/17 17:59 04/26/17 08:27 Gabapentin (Neurontin) 400 mg THREE TIMES A DAY ORAL 04/24/17 18:00 05/24/17 17:59 04/26/17 12:49 Heparin Sodium (Porcine) (Heparin 5000 units/ml) 5,000 units EVERY 12 HOURS SUBQ 04/24/17 09:00 05/24/17 08:59 04/26/17 08:29 Hydromorphone HCl (Dilaudid) 1 mg Q4H PRN IVP Severe Pain (Pain Scale 7-10) 04/25/17 12:00 05/02/17 11:59 04/26/17 12:49 Lorazepam (Ativan 2mg/ml 1ml) 0.5 mg Q4H PRN IV For Anxiety 04/23/17 22:30 04/30/17 22:29 Ondansetron HCl (Zofran) 4 mg Q6H PRN IVP Nausea & Vomiting 04/23/17 22:30 05/23/17 22:29 Polyethylene Glycol (Miralax) 17 gm HSPRN PRN ORAL Constipation 04/23/17 22:30 05/23/17 22:29 Zolpidem Tartrate (Ambien) 5 mg HSPRN PRN ORAL Insomnia 04/23/17 22:30 05/23/17 22:29 JONATHAN MELLO Apr 26, 2017 15:34
--- NOTE | 2017-04-26 17:18 | General Progress Note ---
Assessment/Plan Assessment/Plan (1) Failed Back Surgery Syndrome (2) Lumbar Degenerative disc disease (3) Lumbar spondylosis (4) Lumbar Radiculopathy (5) Lumbar sprain Pt will be continued on norco and Dilaudid. MRI L spine will be done tomorrow as per nurse. Pt was d/w Dr. Pop and he concurred. Subjective Date patient seen: Apr 26, 2017 Time patient seen: 05:00 - pm Allergies: Coded Allergies: No Known Allergies (Verified Allergy, Mild, 09/14/06) Subjective REVIEW OF SYSTEMS: Denies rash, fever, chills, sweating, dizziness, drowsiness, blurred vision, sore throat, or change in hearing or weight. No bowel or bladder incontinence. No dysuria. She is complaining of low back pain and left lower extremity pain. SUBJECTIVE: Pain is unchanged however is reduced to a 5/10 on the dilaudid. Waiting to have MRI. Objective Last 24 Hour Vital Signs Date Time Temp Pulse Resp B/P Pulse Ox O2 Delivery O2 Flow Rate FiO2 04/26/17 12:00 98.2 62 18 113/70 94 Room Air 04/26/17 08:00 98.2 72 18 121/74 95 Room Air 04/26/17 04:00 98.0 80 18 118/74 96 Room Air 04/26/17 00:54 98.2 04/26/17 00:24 97.9 62 15 140/52 96 Room Air 04/25/17 20:00 98.2 70 20 118/72 91 Room Air Intake and Output 04/25/17 04/26/17 19:00 07:00 Intake Total 350 ml 640 ml Balance 350 ml 640 ml Intake Oral 350 ml 640 ml # Voids 4 # Bowel Movements 1 Height (Feet): 5 Height (Inches): 10.00 Weight (Pounds): 125 Objective HEENT: PERRLA. NECK: Range of motion is decreased due the patient's clinical condition with tenderness of paracervical muscles. No adenopathy. LUNGS: Clear. HEART: Regular. ABDOMEN: Benign. BACK: Range of motion is reduced due to patient's pain and condition with no tenderness to paraspinal muscles and trapezial muscles. A well-healed surgical scar noted in the midline on the lumbar spine. EXTREMITIES: No cyanosis. No clubbing. NEURO: No changes. ZEDNER,AFSHAN N. P.A. Apr 26, 2017 17:18
[2017-04-27 04:00] VITALS: BP 118/59
[2017-04-27] MEDS: HYDROmorphone 1mg/ml Carpuject IVP PRN ×5 (06:23→23:30)
[2017-04-27 07:50] VITALS: BP 121/82
--- NOTE | 2017-04-27 08:58 | General Progress Note ---
Assessment/Plan Assessment/Plan (1) Failed Back Surgery Syndrome (2) Lumbar Degenerative disc disease (3) Lumbar spondylosis (4) Lumbar Radiculopathy (5) Lumbar sprain Pt will be continued on norco and Dilaudid. MRI L spine will be done today Pt was d/w Dr. Pop and he concurred. Subjective Date patient seen: Apr 27, 2017 Time patient seen: 07:30 - am Allergies: Coded Allergies: No Known Allergies (Verified Allergy, Mild, 09/14/06) Subjective REVIEW OF SYSTEMS: Denies rash, fever, chills, sweating, dizziness, drowsiness, blurred vision, sore throat, or change in hearing or weight. No bowel or bladder incontinence. No dysuria. She is complaining of low back pain and left lower extremity pain. SUBJECTIVE: She is in pain reduced on the Dilaudid and I advised her to use the [place] for breakthrough pain. MRI will be done this morning. Objective Last 24 Hour Vital Signs Date Time Temp Pulse Resp B/P Pulse Ox O2 Delivery O2 Flow Rate FiO2 04/27/17 07:50 97.9 62 14 121/82 94 Room Air 04/27/17 06:53 97.8 04/27/17 04:00 98.0 66 18 118/59 92 Room Air 04/26/17 23:45 97.8 61 18 114/70 94 Room Air 04/26/17 19:56 97.9 61 18 106/66 90 Room Air 04/26/17 16:00 98.2 62 18 131/72 94 Room Air 04/26/17 12:00 98.2 62 18 113/70 94 Room Air Intake and Output 04/26/17 04/27/17 19:00 07:00 Intake Total 720 ml Balance 720 ml Intake Oral 720 ml # Voids 1 2 # Bowel Movements 1 Height (Feet): 5 Height (Inches): 10.00 Weight (Pounds): 125 Objective HEENT: PERRLA. NECK: Range of motion is decreased due the patient's clinical condition with tenderness of paracervical muscles. No adenopathy. LUNGS: Clear. HEART: Regular. ABDOMEN: Benign. BACK: Range of motion is reduced due to patient's pain and condition with no tenderness to paraspinal muscles and trapezial muscles. A well-healed surgical scar noted in the midline on the lumbar spine. EXTREMITIES: No cyanosis. No clubbing. NEURO: No changes. AFSHAN LARES. Apr 27, 2017 08:58
[2017-04-27] MEDS: Heparin 5000 units/ml inj SUBQ SCH ×2 (09:49→21:44)
[2017-04-27 12:31] VITALS: BP 131/59
[2017-04-27 16:18] VITALS: BP 100/68
--- NOTE | 2017-04-27 18:57 | Pulmonology Progress Note ---
Assessment/Plan Problems: (1) Pain (2) Intractable back pain (3) Unable to ambulate Assessment/Plan MRI done, result pending psych evaluaiton neuro / pain f/u symptomatic treatment pt/ot Subjective ROS Limited/Unobtainable: No Constitutional: Reports: no symptoms HEENT: Repors: no symptoms Allergies: Coded Allergies: No Known Allergies (Verified Allergy, Mild, 09/14/06) Objective Last 24 Hour Vital Signs Date Time Temp Pulse Resp B/P Pulse Ox O2 Delivery O2 Flow Rate FiO2 04/27/17 16:18 98.4 61 14 100/68 94 Room Air 04/27/17 12:31 98.1 68 14 131/59 97 Room Air 04/27/17 07:50 97.9 62 14 121/82 94 Room Air 04/27/17 06:53 97.8 04/27/17 04:00 98.0 66 18 118/59 92 Room Air 04/26/17 23:45 97.8 61 18 114/70 94 Room Air 04/26/17 19:56 97.9 61 18 106/66 90 Room Air Intake and Output 04/26/17 04/27/17 19:00 07:00 Intake Total 720 ml Balance 720 ml Intake Oral 720 ml # Voids 1 2 # Bowel Movements 1 Objective General Appearance: WD/WN HEENT: normocephalic, atraumatic Respiratory/Chest: chest wall non-tender, lungs clear Cardiovascular: normal peripheral pulses, normal rate Abdomen: normal bowel sounds, soft, non tender Genitourinary: normal external genitalia Extremities: no cyanosis Skin: no rash 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 Lymphatic: no neck adenopathy Musculoskeletal: normal muscle bulk Current Medications Medications (Trade) Dose Ordered Sig/Nasreen Route PRN Reason Start Time Stop Time Status Last Admin Dose Admin Acetaminophen (Tylenol) 650 mg Q4H PRN ORAL fever 04/23/17 22:30 05/23/17 22:29 Acetaminophen/ Hydrocodone Bitart ([place] 10/325) 1 ea Q6H PRN ORAL breakthrough pain 04/27/17 18:00 05/04/17 17:59 Al Hydroxide/Mg Hydroxide (Mylanta II) 30 ml Q6H PRN ORAL dyspepsia 04/23/17 22:30 05/23/17 22:29 Baclofen (Lioresal) 10 mg THREE TIMES A DAY ORAL 04/25/17 13:00 05/25/17 12:59 04/27/17 18:33 Dextrose (Dextrose 50%) STAT PRN IV Hypoglycemia 04/23/17 22:30 05/23/17 22:29 Duloxetine HCl (Cymbalta) 40 mg DAILY ORAL 04/24/17 18:00 05/24/17 17:59 04/27/17 09:48 Escitalopram Oxalate (Lexapro) 10 mg DAILY ORAL 04/28/17 09:00 05/28/17 08:59 UNV Gabapentin (Neurontin) 400 mg THREE TIMES A DAY ORAL 04/24/17 18:00 05/24/17 17:59 04/27/17 18:34 Heparin Sodium (Porcine) (Heparin 5000 units/ml) 5,000 units EVERY 12 HOURS SUBQ 04/24/17 09:00 05/24/17 08:59 04/27/17 09:49 Hydromorphone HCl (Dilaudid) 1 mg Q4H PRN IVP Severe Pain (Pain Scale 7-10) 04/25/17 12:00 05/02/17 11:59 04/27/17 15:16 Lorazepam (Ativan 2mg/ml 1ml) 0.5 mg Q4H PRN IV For Anxiety 04/23/17 22:30 04/30/17 22:29 Ondansetron HCl (Zofran) 4 mg Q6H PRN IVP Nausea & Vomiting 04/23/17 22:30 05/23/17 22:29 Polyethylene Glycol (Miralax) 17 gm HSPRN PRN ORAL Constipation 04/23/17 22:30 05/23/17 22:29 Trazodone HCl (Desyrel) 100 mg BEDTIME PRN ORAL insomnia 04/27/17 21:00 05/27/17 20:59 UNV Zolpidem Tartrate (Ambien) 5 mg HSPRN PRN ORAL Insomnia 04/23/17 22:30 05/23/17 22:29 JONATHAN MELLO Apr 27, 2017 18:57
[2017-04-27 20:00] VITALS: BP 113/72
[2017-04-27] MEDS ORDERED: TraZODone 100mg tab ORAL PRN (21:00)
[2017-04-27] MEDS: Norco 10mg/325mg tab ORAL PRN (21:43)
[2017-04-28] VITALS: BP 101/58
[2017-04-28 04:00] VITALS: BP 124/69
[2017-04-28] MEDS: HYDROmorphone 1mg/ml Carpuject IVP PRN (06:19)
[2017-04-28 08:00] VITALS: BP 104/41
[2017-04-28] MEDS: Heparin 5000 units/ml inj SUBQ SCH (08:43)
--- NOTE | 2017-04-28 08:56 | General Progress Note ---
Assessment/Plan Assessment/Plan (1) Failed Back Surgery Syndrome (2) Lumbar Degenerative disc disease (3) Lumbar spondylosis (4) Lumbar Radiculopathy (5) Lumbar sprain Pt will be continued on norco and Dilaudid. MRI L spine results pending. Pt was d/w Dr. Pop and he concurred. Subjective Date patient seen: Apr 28, 2017 Time patient seen: 07:00 - am Allergies: Coded Allergies: No Known Allergies (Verified Allergy, Mild, 09/14/06) Subjective REVIEW OF SYSTEMS: Denies rash, fever, chills, sweating, dizziness, drowsiness, blurred vision, sore throat, or change in hearing or weight. No bowel or bladder incontinence. No dysuria. She is complaining of low back pain and left lower extremity pain. SUBJECTIVE: Patient reports that her pain has been tolerated well on the medications. MRI results pending. Objective Last 24 Hour Vital Signs Date Time Temp Pulse Resp B/P Pulse Ox O2 Delivery O2 Flow Rate FiO2 04/28/17 08:00 98.2 69 18 104/41 96 Room Air 04/28/17 04:00 98.2 61 18 124/69 92 Room Air 04/28/17 00:00 97.9 61 18 101/58 95 Room Air 04/27/17 20:00 98.0 69 18 113/72 90 Room Air 04/27/17 16:18 98.4 61 14 100/68 94 Room Air 04/27/17 12:31 98.1 68 14 131/59 97 Room Air Intake and Output 04/27/17 04/28/17 19:00 07:00 Intake Total 1000 ml Output Total 600 ml Balance 400 ml Intake Oral 1000 ml Output Urine Total 600 ml # Voids 1 Height (Feet): 5 Height (Inches): 10.00 Weight (Pounds): 125 Objective HEENT: PERRLA. NECK: Range of motion is decreased due the patient's clinical condition with tenderness of paracervical muscles. No adenopathy. LUNGS: Clear. HEART: Regular. ABDOMEN: Benign. BACK: Range of motion is reduced due to patient's pain and condition with no tenderness to paraspinal muscles and trapezial muscles. A well-healed surgical scar noted in the midline on the lumbar spine. EXTREMITIES: No cyanosis. No clubbing. NEURO: No changes. AFSHAN LARES Apr 28, 2017 08:56
[2017-04-28 11:48] VITALS: BP 136/76
[2017-04-28] MEDS: Norco 10mg/325mg tab ORAL PRN ×2 (11:54→18:13)
[2017-04-28 16:00] VITALS: BP 125/81
--- NOTE | 2017-04-28 19:22 | Pulmonology Progress Note ---
Assessment/Plan Problems: (1) Pain (2) Intractable back pain (3) Unable to ambulate Assessment/Plan MRI done, all chronic changes, psych evaluaiton neuro / pain f/u symptomatic treatment pt/ot Subjective ROS Limited/Unobtainable: No Interval Events: no new complaisn, MRI done Allergies: Coded Allergies: No Known Allergies (Verified Allergy, Mild, 09/14/06) Objective Last 24 Hour Vital Signs Date Time Temp Pulse Resp B/P Pulse Ox O2 Delivery O2 Flow Rate FiO2 04/28/17 16:00 98.6 71 18 125/81 97 Room Air 04/28/17 12:53 98.4 04/28/17 11:48 98.4 62 20 136/76 96 Room Air 04/28/17 08:00 98.2 69 18 104/41 96 Room Air 04/28/17 04:00 98.2 61 18 124/69 92 Room Air 04/28/17 00:00 97.9 61 18 101/58 95 Room Air 04/27/17 20:00 98.0 69 18 113/72 90 Room Air Intake and Output 04/27/17 04/28/17 19:00 07:00 Intake Total 1000 ml Output Total 600 ml Balance 400 ml Intake Oral 1000 ml Output Urine Total 600 ml # Voids 1 Objective General Appearance: WD/WN HEENT: normocephalic, atraumatic Respiratory/Chest: chest wall non-tender, lungs clear Cardiovascular: normal peripheral pulses, normal rate Abdomen: normal bowel sounds, soft, non tender Genitourinary: normal external genitalia Extremities: no cyanosis Skin: no rash 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 Lymphatic: no neck adenopathy Musculoskeletal: normal muscle bulk Current Medications Medications (Trade) Dose Ordered Sig/Nasreen Route PRN Reason Start Time Stop Time Status Last Admin Dose Admin Acetaminophen (Tylenol) 650 mg Q4H PRN ORAL fever 04/23/17 22:30 05/23/17 22:29 Acetaminophen/ Hydrocodone Bitart ([place] 10/325) 1 ea Q6H PRN ORAL breakthrough pain 04/27/17 18:00 05/04/17 17:59 04/28/17 18:13 Al Hydroxide/Mg Hydroxide (Mylanta II) 30 ml Q6H PRN ORAL dyspepsia 04/23/17 22:30 05/23/17 22:29 Baclofen (Lioresal) 10 mg THREE TIMES A DAY ORAL 04/25/17 13:00 05/25/17 12:59 04/28/17 18:13 Dextrose (Dextrose 50%) STAT PRN IV Hypoglycemia 04/23/17 22:30 05/23/17 22:29 Escitalopram Oxalate (Lexapro) 10 mg DAILY ORAL 04/28/17 09:00 05/28/17 08:59 04/28/17 08:41 Gabapentin (Neurontin) 400 mg THREE TIMES A DAY ORAL 04/24/17 18:00 05/24/17 17:59 04/28/17 18:11 Heparin Sodium (Porcine) (Heparin 5000 units/ml) 5,000 units EVERY 12 HOURS SUBQ 04/24/17 09:00 05/24/17 08:59 04/28/17 08:43 Hydromorphone HCl (Dilaudid) 1 mg Q4H PRN IVP Severe Pain (Pain Scale 7-10) 04/25/17 12:00 05/02/17 11:59 04/28/17 06:19 Lorazepam (Ativan 2mg/ml 1ml) 0.5 mg Q4H PRN IV For Anxiety 04/23/17 22:30 04/30/17 22:29 Ondansetron HCl (Zofran) 4 mg Q6H PRN IVP Nausea & Vomiting 04/23/17 22:30 05/23/17 22:29 Polyethylene Glycol (Miralax) 17 gm HSPRN PRN ORAL Constipation 04/23/17 22:30 05/23/17 22:29 Trazodone HCl (Desyrel) 100 mg HSPRN PRN ORAL insomnia 04/27/17 21:00 05/27/17 20:59 JONATHAN MELLO Apr 28, 2017 19:22
[2017-04-28 19:50] VITALS: BP 116/59
--- NOTE | 2017-04-29 08:54 | Consultation ---
History of Present Illness General Date patient seen: Apr 26, 2017 Chief Complaint: Multiple Trauma/Fall Present Illness HPI 66 yo female with history of depression and narcotic dependence complaining of neck pain, back pain and left leg pain.The pt had a mechanical trip and fall on Wednesday where she missed the steps and fell on her left side. the pt has anxiety and insomnia requesting to be given Trazodone 100mg she stated that she takes it at night. no depressive manic or psychotic sxs. Allergies: Coded Allergies: No Known Allergies (Verified Allergy, Mild, 09/14/06) Medication History Scheduled Gabapentin (Neurontin), 300 MG ORAL THREE TIMES A DAY, (Reported) Trazodone* (Trazodone*), 150 MG ORAL BEDTIME, (Reported) Scheduled PRN Hydrocodone Bit/Acetaminophen 5-325* ([place] 5-325 Tablet*), 1 TAB ORAL Q4H PRN for For Pain, (Reported) Patient History Healthcare decision maker Resuscitation status Full Code Advanced Directive on File Past Medical/Surgical History Past Medical/Surgical History: (1) Pain Review of Systems Psychiatric: Reports: anxiety, depressed feelings, emotional problems, prior hx Physical Exam General Appearance: alert, mild distress Neurologic: alert, oriented x 3, responsive, depressed affect Last 24 Hour Vital Signs Date Time Temp Pulse Resp B/P Pulse Ox O2 Delivery O2 Flow Rate FiO2 04/28/17 19:50 97.9 80 18 116/59 94 Room Air 04/28/17 16:00 98.6 71 18 125/81 97 Room Air 04/28/17 12:53 98.4 04/28/17 11:48 98.4 62 20 136/76 96 Room Air Intake and Output 04/28/17 04/29/17 19:00 07:00 Intake Total 600 ml Balance 600 ml Intake Oral 600 ml # Voids 3 Height (Feet): 5 Height (Inches): 10.00 Weight (Pounds): 125 Assessment/Plan Status: not improved Assessment/Plan MDD, anxiety d/o Trazodone 100mg qhs' provided drew/Artemio King M.D. Apr 29, 2017 08:54
--- NOTE | 2017-04-29 08:56 | General Progress Note ---
Assessment/Plan Status: doing well, stable Assessment/Plan cont trazodone Subjective Date patient seen: Apr 28, 2017 Constitutional: Reports: malaise, weakness Neurologic/Psychiatric: Reports: anxiety, depressed, emotional problems Allergies: Coded Allergies: No Known Allergies (Verified Allergy, Mild, 09/14/06) Objective Last 24 Hour Vital Signs Date Time Temp Pulse Resp B/P Pulse Ox O2 Delivery O2 Flow Rate FiO2 04/28/17 19:50 97.9 80 18 116/59 94 Room Air 04/28/17 16:00 98.6 71 18 125/81 97 Room Air 04/28/17 12:53 98.4 04/28/17 11:48 98.4 62 20 136/76 96 Room Air Intake and Output 04/28/17 04/29/17 19:00 07:00 Intake Total 600 ml Balance 600 ml Intake Oral 600 ml # Voids 3 Height (Feet): 5 Height (Inches): 10.00 Weight (Pounds): 125 General Appearance: alert, mild distress Neurologic: alert, oriented x 3, responsive, depressed affect Artemio Monet M.D. Apr 29, 2017 08:56
--- NOTE | 2017-04-29 13:13 | Discharge Summary ---
Discharge Summary Hospital Course Date of Admission Apr 23, 2017 at 23:27 Date of Discharge Apr 28, 2017 at 20:00 Admitting Diagnosis intractable back pain. unable to ambulate [facility] Mindi Hays is a 66 year old female who was admitted on Apr 23, 2017 at 23:27 for Intractable Back Pain, Unable To Ambulate Hospital Course [id number] Discharge Discharge Disposition Patient was discharged to Home with Home Health(06) Discharge Diagnoses: Jennie Gonzalez NP Apr 29, 2017 13:13
--- NOTE | 2017-04-30 03:30 | Discharge Summary 2 SIG ---
DATE OF ADMISSION: 04/23/2017 DATE OF DISCHARGE: 04/28/2017 CONSULTANTS: 1. Artemio Monet M.D. 2. Halle Pop M.D. 3. Chapito Booker M.D. BRIEF HOSPITAL COURSE: The patient is a 66-year-old female, who presented to ED for evaluation of neck pain, back pain, and left leg pain after a mechanical trip and fall where she missed the steps and fell on her left side. She denied loss of consciousness, dizziness, or head injury. She was initially seen at [facility] where she was told x-rays done were normal and she was subsequently discharged home. The patient stated that since that time she had intense pain, which has not improved and was unable to ambulate and presented to [place] [facility] ED for further evaluation. She had pain on the neck, back, left hip, and left leg. Pain was 10/10, which is sharp and nonradiating. She had a prior back surgery in 2007. Workup at ED showed no leukocytosis. CT of the cervical spine, lumbar spine, and pelvis were unremarkable. Due to the patient being unable to walk, the patient was admitted for further evaluation. She was seen by Dr. Booker and was given Cymbalta and Neurontin was increased to 300 mg q.i.d. She was given pain management consisting of [place] and Dilaudid. She was seen by Dr. Monet, diagnosed with major depressive disorder and anxiety disorder, and was given trazodone 100 mg at bedtime. She continued with physical therapy and occupational therapy. MRI of the spine was taken, however, no official report out at the time of this dictation. The patient was eventually discharged home with home health. FINAL DIAGNOSES: 1. Status post mechanical fall with intractable pain on the lower leg. 2. Chronic pain syndrome. 3. Opioid dependency. 4. Major depressive disorder. 5. Anxiety disorder. 6. Lumbar degenerative disk disease. 7. Lumbar spondylosis. 8. Lumbar radiculopathy. 9. Lumbar sprain. 10. Failed back surgery syndrome. 11. Inability to ambulate. Mirali Zarrabi, M.D. I have been assigned to dictate discharge summary on this account and I was not involved in the patient's management. Jennie Gonzalez N.P. DR: AMY JOB#: [id number] CC: LUPE
== END 2017-04-28 20:00 | disposition home health service (06) | DRG 552 ==
LOC: EMR 20:46 → EDBEDREQ 22:54 → 4E 23:27 → EDBEDREQ 23:57
DX: S33.5XXA Sprain of ligaments of lumbar spine, initial encounter (principal); F11.20 Opioid dependence, uncomplicated; M79.662 Pain in left lower leg; W10.8XXA Fall (on) (from) other stairs and steps, initial encounter; G89.4 Chronic pain syndrome; F32.9 Major depressive disorder, single episode, unspecified; F41.9 Anxiety disorder, unspecified; M51.16 Intervertebral disc disorders with radiculopathy, lumbar region; M47.896 Other spondylosis, lumbar region; R26.2 Difficulty in walking, not elsewhere classified; M54.2 Cervicalgia; M25.552 Pain in left hip; M96.1 Postlaminectomy syndrome, not elsewhere classified
CPT/HCPCS: 36415; 72125; 72131; 72158; 72192; 80053; 84443; 85025; A9585